=== PATIENT | female | born 1955 | race Caucasian/White ===

== ENCOUNTER → 2022-07-07 | Outpatient (CLI) | payer MEDICARE ==
--- NOTE | 2022-07-07 08:32 | CT ---
EXAMINATION TYPE: CT elbow LT wo con CT DLP: 241 mGycm, Automated exposure control for dose reduction was used. DATE OF EXAM: 07/07/2022 7:47 AM COMPARISON: None CLINICAL INDICATION:Female, 67 years old with history of M25.522 pain L elbow;, Pain left elbow TECHNIQUE: Axial images were obtained of the left elbow . Additional coronal and sagittal reformatte d images and soft tissue and bone window were obtained for review. 3-D reconstruction was created on a separate workstation. Contrast used: None Oral contrast used: None FINDINGS: There is an intra-articular fracture of the elbow through the capitulum with 9 mm displacem ent. The remainder of the osseous structures appear intact. Soft tissue swelling in joint effusion is present. There are additional smaller osseous fragment seen within the fracture site. IMPRESSION: Acute displaced intra-articular fracture of the left capitellum. Multiple smaller osseous fragments a re seen in the fracture site. There is associated joint effusion with underlying blood products.
== END | disposition home or self-care (01) ==
LOC: RADCTMAIN 06:50
PROVIDERS: ATTEND Orthopaedic Surgery Hand Surgery
DX: S42.492A Other displaced fracture of lower end of left humerus, initial encounter for closed fracture (principal); M25.422 Effusion, left elbow; M25.522 Pain in left elbow